=== PATIENT | male | born 2005 | race Asian ===

== ENCOUNTER 2023-12-19 18:56 | Emergency (ER) | payer SELFPAY ==
[2023-12-19] MEDS: Amoxicillin/Clavulanate K 875-125 MG Tab PO ONE (19:24)
[2023-12-19] MEDS: Dexamethasone 4 MG/ML SDV PO ONE (19:25)
== END 2023-12-19 19:38 | disposition home or self-care (01) ==
LOC: DL.ED 18:56
DX: J36 Peritonsillar abscess (principal); Z91.010 Allergy to peanuts; Z91.013 Allergy to seafood
CPT/HCPCS: 87081; 87430; 99282; 99283; A9270-GY; J1100